=== PATIENT | female | born 1965 ===

== ENCOUNTER 2019-01-30 16:04 | Outpatient (CLI) | payer OTHER ==
[~2019-01-30 16:04] MED LIST: ATENOLOL25 GM; HYZAAR 50/12.51 TAB; SINGULAIR 10MG10 MG
== END 2019-01-30 16:14 | disposition home or self-care (01) ==
LOC: LAB 16:04
DX: J11.1 Influenza due to unidentified influenza virus with other respiratory manifestations (principal)

== ENCOUNTER 2020-05-15 15:00 | Outpatient (CLI) | payer OTHER | END 2020-05-15 16:10 | disposition home or self-care (01) | LOC: PPH VACUNA 15:00 | DX: Z23 Encounter for immunization (principal) ==

== ENCOUNTER → 2021-03-25 | Outpatient (CLI) | payer OTHER | END | disposition home or self-care (01) | LOC: LAB 09:36 | PROVIDERS: ATTEND Emergency Medicine Pediatric Emergency Medicine | DX: Z03.818 Encounter for observation for suspected exposure to other biological agents ruled out (principal) ==

== ENCOUNTER → 2021-05-21 08:35 | Outpatient (CLI) | payer OTHER | END | disposition home or self-care (01) | LOC: LAB 08:35 | PROVIDERS: ATTEND Internal Medicine Geriatric Medicine | DX: E03.8 Other specified hypothyroidism (principal); E55.9 Vitamin D deficiency, unspecified; E56.8 Deficiency of other vitamins; E11.9 Type 2 diabetes mellitus without complications; I11.9 Hypertensive heart disease without heart failure; R97.1 Elevated cancer antigen 125 [CA 125] ==

== ENCOUNTER 2021-05-28 07:00 | Outpatient (CLI) | payer OTHER | END 2021-05-28 07:25 | disposition home or self-care (01) | LOC: PPH VACUNA 07:00 | PROVIDERS: ATTEND Emergency Medicine Pediatric Emergency Medicine | DX: Z23 Encounter for immunization (principal) ==

== ENCOUNTER 2021-11-08 09:08 | Outpatient (CLI) | payer OTHER | END 2021-11-08 15:00 | disposition home or self-care (01) | LOC: LAB 09:08 | DX: J45.998 Other asthma (principal); I10 Essential (primary) hypertension; A64 Unspecified sexually transmitted disease; E03.9 Hypothyroidism, unspecified ==

== ENCOUNTER 2021-12-08 08:00 | Outpatient (CLI) | payer OTHER | END 2021-12-08 08:30 | disposition home or self-care (01) | LOC: PPH VACUNA 08:00 | PROVIDERS: ATTEND Emergency Medicine Pediatric Emergency Medicine | DX: Z23 Encounter for immunization (principal) ==

== ENCOUNTER 2022-05-03 08:00 | Outpatient (CLI) | payer OTHER | END 2022-05-03 08:05 | disposition home or self-care (01) | LOC: PPH VACUNA 08:00 | PROVIDERS: ATTEND Emergency Medicine Pediatric Emergency Medicine | DX: Z23 Encounter for immunization (principal) ==

== ENCOUNTER 2022-07-12 14:34 | Outpatient (CLI) | payer OTHER | END 2022-07-12 14:44 | disposition home or self-care (01) | LOC: PPH VACUNA 14:34 | PROVIDERS: ATTEND Emergency Medicine Pediatric Emergency Medicine | DX: Z23 Encounter for immunization (principal) ==

== ENCOUNTER 2023-03-24 16:28 | Outpatient (CLI) | payer OTHER | END 2023-03-24 16:35 | disposition home or self-care (01) | LOC: RAD 16:28 | PROVIDERS: ATTEND Orthopaedic Surgery | DX: M17.12 Unilateral primary osteoarthritis, left knee (principal) ==

== ENCOUNTER 2023-05-08 09:55 | Outpatient (CLI) | payer OTHER | END 2023-05-08 10:10 | disposition home or self-care (01) | LOC: PPH VACUNA 09:55 | PROVIDERS: ATTEND Emergency Medicine Pediatric Emergency Medicine | DX: Z23 Encounter for immunization (principal) ==